=== PATIENT | female | born 1955 | race Caucasian/White ===

== ENCOUNTER → 2020-04-12 16:16 | Outpatient (CLI) | payer BC, SELFPAY ==
--- NOTE | ~2020-04-12 | MM_ITS ---
EXAMINATION: MM screening [facility] BI w jailene HISTORY: Screening TECHNIQUE: Craniocaudal and mediolateral oblique 3-D tomosynthesis images were obtained and synthetic 2-D images were generated. CAD analysis was submitted and interpreted. COMPARISON: Comparison to multiple prior studies sequentially, with oldest reviewed study dated 12/20. BREAST PARENCHYMAL COMPOSITION: There are scattered areas of fibroglandular density. FINDINGS: There is no evidence of suspicious mass, calcification, or architectural distortion to sugg est malignancy in either breast. There has been no suspicious interval change. IMPRESSION: 1. No mammographic evidence of malignancy. 2. Recommend routine screening mammography in one year. BI-RADS Category 1: Negative Reviewed, dictated and finalized at location A.
== END ==
PROVIDERS: PCP Family Medicine; Visit Provider Family Medicine
DX: Z12.31 Encounter for screening mammogram for malignant neoplasm of breast (principal)
CPT/HCPCS: 77063; 77067

== ENCOUNTER → 2021-05-21 16:18 | Outpatient (CLI) | payer BC, SELFPAY ==
--- NOTE | ~2021-05-21 | MM_ITS ---
EXAMINATION: MM screening [facility] BI w jailene HISTORY: Screening mammogram TECHNIQUE: Craniocaudal and mediolateral oblique 3-D tomosynthesis images were obtained and synthetic 2-D images were generated. CAD analysis was submitted and interpreted. COMPARISON: 04/12/2020, 02/16/2019 BREAST PARENCHYMAL COMPOSITION: There are scattered areas of fibroglandular density. FINDINGS: There is no evidence of suspicious mass, calcification, or architectural distortion to sugg est malignancy in either breast. There has been no suspicious interval change. IMPRESSION: 1. No mammographic evidence of malignancy. 2. Recommend routine screening mammography in one year. BI-RADS Category 1: Negative Reviewed, dictated and finalized at location A. ULATING MACHINE MECHANIC
== END ==
PROVIDERS: PCP Family Medicine; Visit Provider Family Medicine
DX: Z12.31 Encounter for screening mammogram for malignant neoplasm of breast (principal)
CPT/HCPCS: 77063; 77067

== ENCOUNTER 2021-07-01 01:38 | Day surgery (SDC) | payer BC, SELFPAY ==
[2021-06-18 11:26] VITALS: BMI 26.6
[2021-07-01 08:40] VITALS: BP 121/73; PULSE 76; RESP 16; TEMP 36.3; O2SAT 100; BMI 25.7
[2021-07-01] MEDS: LACTATED RINGERS 1,000 ML 150 ML IV CONT (08:52)
--- NOTE | 2021-07-01 09:04 | P.CONGI_ITS ---
Assessment and Plan Assessment and plan (1) Family hx of colon cancer: Code(s): Z80.0 - Family history of malignant neoplasm of digestive organs Status: Acute Assessment and Plan: Patient's brother has had colon cancer as well as a cousin. Patient herself has had colon polyps in the past. Plan is for surveillance colonoscopy now and at 5 year intervals in the future. GI Consult Note Consult date/time: 07/01/21 09:04 HPI: Jazmyn Davila is a 66 year old female Presents for screening colonoscopy. Patient reports that she has had prior colonoscopies typically at 5 year intervals. At 1 time she did have colon polyps. Family history is significant many years ago a cousin with colon cancer more recently her brother with colon cancer. Patient presents for neoplasia screening. Review of Systems Review of Systems: All systems reviewed & are unremarkable except as noted in HPI and below PMFSH Past Medical History Medical History Arthritis Asthma High cholesterol Pneumonia Family History Family History Other Cerebrovascular accident Diabetes mellitus Family history of arthritis Family history of cardiovascular disease Family history of malignant neoplasm Hypertension Social History Social History Smoking status: Never smoker Alcohol intake: former Substance use: never Substance use type: does not use Living arrangements: with family Spiritual care concerns: No Meds Home Medications and Allergies Home Medications Medication Instructions Recorded Confirmed Type Daily Fiber 2 tab-cap PO DAILY 06/18/21 06/18/21 History azelastine 2 spray INTRANASAL BID 06/18/21 06/18/21 History fluticasone propionate 2 spray INTRANASAL DAILY 06/18/21 06/18/21 History latanoprost 1 drp EACH EYE HS 06/18/21 06/18/21 History montelukast 10 mg PO DAILY 06/18/21 06/18/21 History ibhzkhfsqlhx-Pw-ripy-minerals 1 tablet PO DAILY 06/18/21 06/18/21 History [Multiple Vitamin, Womens] rosuvastatin 40 mg PO HS 06/18/21 06/18/21 History Allergies Allergy/AdvReac Type Severity Reaction Status Date / Time Molds and Smuts Allergy Unknown Unknown Uncoded 07/01/21 08:39 [place] Allergy Unknown Unknown Uncoded 07/01/21 08:39 Vital Signs Vital Signs - 24 hr 07/01/21 08:40 Temperature 97.3 F L Pulse Rate 76 Respiratory Rate 16 Blood Pressure 121/73 Pulse Oximetry 100 Exam Narrative: Physical exam reveals patient be alert. Vital signs stable. HEENT exam is unremarkable. Patient is anicteric. Lungs are clear to auscultation and percussion. Heart is without murmur or extra sounds. Abdominal exam bowel sounds are present soft nontender with no hepatosplenomegaly. Digital external rectal exam is normal.
--- NOTE | 2021-07-01 09:06 | WPDANESEPPF ---
Anes - Initial Pre Proc Eval Procedure: Operation Date: 07/01/21 10:00 Proposed Procedures p Screening Colonoscopy - Salvador Olivo MD Date/Time: 07/01/21 09:06 Surgeon: Salvador Olivo MD Pre Op Diagnosis: neoplasm screening Patient Data Age: 66 Gender: F Height: 1.57 m Weight: 63.7 kg Last Vital Signs Temp 36.3 C L 07/01/21 08:40 Pulse 76 07/01/21 08:40 Resp 16 07/01/21 08:40 BP 121/73 07/01/21 08:40 Pulse Ox 100 07/01/21 08:40 Allergies Allergy/AdvReac Type Severity Reaction Status Date / Time Molds and Smuts Allergy Unknown Unknown Uncoded 07/01/21 08:39 [place] Allergy Unknown Unknown Uncoded 07/01/21 08:39 Home Medications Medication Instructions Recorded Confirmed Type Daily Fiber 2 tab-cap PO DAILY 06/18/21 06/18/21 History azelastine 2 spray INTRANASAL BID 06/18/21 06/18/21 History fluticasone propionate 2 spray INTRANASAL DAILY 06/18/21 06/18/21 History latanoprost 1 drp EACH EYE HS 06/18/21 06/18/21 History montelukast 10 mg PO DAILY 06/18/21 06/18/21 History jepaliaeypct-Kc-ubzr-minerals 1 tablet PO DAILY 06/18/21 06/18/21 History [Multiple Vitamin, Womens] rosuvastatin 40 mg PO HS 06/18/21 06/18/21 History Patient hx anesthesia problems: post op nausea/vomiting Family hx anesthesia problems: none Results Review: All pre-operative results and documents have been reviewed as part of the pre-operative evaluation. [facility] Past Medical History Medical History Arthritis Asthma High cholesterol Pneumonia Family History Family History Other Cerebrovascular accident Diabetes mellitus Family history of arthritis Family history of cardiovascular disease Family history of malignant neoplasm Hypertension Social History Social History Smoking status: Never smoker Alcohol intake: former Substance use: never Substance use type: does not use Living arrangements: with family Spiritual care concerns: No Anes - Eval Final PreProcedure Day of Procedure 07/01/21 09:06 Patient weight: normal Heart: regular rate and rhythm Lungs: clear to auscultation Airway: Mallampati scale class II Neurological: alert and oriented Last oral intake: >/= 8 hours ASA classification: II Emergent: no Anesthetic plan: proceed Anesthesia type and monitoring: general GIVS and standard monitoring Results Review: All pre-operative results and documents have been reviewed as part of the pre-operative evaluation. Informed Consent: The patient's anesthetic plan and its attendant risks and benefits were discussed with the patient/family/POA. Questions were solicited and answers provided to the satisfaction of the patient/family/POA.
[2021-07-01 09:53] VITALS: BP 110/65; PULSE 82; RESP 22; O2SAT 93
[2021-07-01 10:03] VITALS: BP 117/63; PULSE 81; RESP 19; O2SAT 95
[2021-07-01 10:13] VITALS: BP 129/71; PULSE 70; RESP 20; O2SAT 98
== END 2021-07-01 10:27 | disposition home or self-care (01) ==
PROVIDERS: PCP Family Medicine; Visit Provider Internal Medicine Gastroenterology
PROC: 0DJD8ZZ Inspection of Lower Intestinal Tract, Via Natural or Artificial Opening Endoscopic (ICD-10-PCS; CPT 45378; principal; 2021-07-01 10:00)
DX: Z12.11 Encounter for screening for malignant neoplasm of colon (principal); D12.5 Benign neoplasm of sigmoid colon; K57.30 Diverticulosis of large intestine without perforation or abscess without bleeding; K64.8 Other hemorrhoids; Z80.0 Family history of malignant neoplasm of digestive organs; J45.909 Unspecified asthma, uncomplicated; E78.00 Pure hypercholesterolemia, unspecified
CPT/HCPCS: 45385; 88305; J2704; J7120

== ENCOUNTER → 2022-08-12 14:55 | Outpatient (CLI) | payer MEDICARE, SELFPAY ==
--- NOTE | ~2022-08-12 | MM_ITS ---
EXAMINATION: MM screening [facility] BI w jailene HISTORY: Screening mammogram TECHNIQUE: Craniocaudal and mediolateral oblique 3-D tomosynthesis images were obtained and synthetic 2-D images were generated. CAD analysis was submitted and interpreted. COMPARISON: 05/21/2021, 04/12/2020, 02/16/2019, 01/22/2018 BREAST PARENCHYMAL COMPOSITION: There are scattered areas of fibroglandular density. FINDINGS: There is a small cluster of circumscribed subcentimeter low density nodules in the central, upper left breast, which are growing slowly more conspicuous since 2019. No suspicious parenchymal a bnormality seen in the right breast. No suspicious macrocalcifications in either breast. IMPRESSION: More conspicuous cluster of circumscribed subcentimeter low density nodules in the central to upper l eft breast, as detailed above. Spot compression views and ultrasound are recommended for further eval uation. BI-RADS Category 0: Incomplete: Needs additional imaging evaluation. Reviewed, dictated and finalized at location . ECT ENGINEERING DIRECTOR IMPRESSION: More conspicuous cluster of circumscribed subcentimeter low density nodules in the central to upper left breast, as detailed above. Spot compression views and ultrasound are recommended for further evaluation. BI-RADS Category 0: Incomplete: Needs additional imaging evaluation.
== END ==
PROVIDERS: PCP Family Medicine; Visit Provider Family Medicine
DX: Z12.31 Encounter for screening mammogram for malignant neoplasm of breast (principal); R92.8 Other abnormal and inconclusive findings on diagnostic imaging of breast
CPT/HCPCS: 77063; 77067

== ENCOUNTER → 2022-10-03 08:04 | Outpatient (CLI) | payer MEDICARE, SELFPAY ==
--- NOTE | ~2022-10-03 | MMUS_ITS ---
EXAMINATION: MM diagnostic cali LT w jailene, US breast LT complete HISTORY: Follow-up small left breast masses. TECHNIQUE: Additional 3-D tomosynthesis images of the left breast were performed and synthetic 2-D im ages were generated. CAD analysis was submitted and interpreted. High resolution complete left breast ultrasound was performed. COMPARISON: Comparison to multiple prior studies sequentially, with oldest reviewed study dated 01/14 BREAST PARENCHYMAL COMPOSITION: Breast composed of scattered areas of fibroglandular density FINDINGS: MAMMOGRAPHIC FINDINGS: There are 2 small masses in the upper outer quadrant of the left breast. ULTRASOUND: Complete US of all 4 quadrants of the left breast and retroareolar region was reviewed. At 1:00, 7 cm from the nipple there is an oval hypoechoic 4 mm mass with parallel orientation, no posterior featur es or internal vascularity. At 2:00, 1 cm from the nipple, there is a 4 mm simple cyst. IMPRESSION: 1. Probable benign left breast mass at 1:00, 7 cm from the nipple. 2. Recommend 6 month follow-up Limited left breast ultrasound BI-RADS category 3, probably benign findings. Reviewed, dictated and finalized at location A. IMPRESSION: 1. Probable benign left breast mass at 1:00, 7 cm from the nipple. 2. Recommend 6 month follow-up Limited left breast ultrasound BI-RADS category 3, probably benign findings.
== END ==
PROVIDERS: PCP Physician Assistant; Visit Provider Emergency Medicine
DX: R92.8 Other abnormal and inconclusive findings on diagnostic imaging of breast (principal)
CPT/HCPCS: 76641; 77061; 77065; G0279

== ENCOUNTER → 2022-11-11 10:50 | Outpatient (CLI) | payer MEDICARE, SELFPAY ==
--- NOTE | ~2022-11-11 | DEXA_ITS ---
Bone Density Report Name: SAMMY PIRES Age: 67 Sex: Female Ethnicity: White Date of : 1955 Indication: postmenopausal; screening for osteoporosis; height loss; Referring Provider: TONYA, MARY Study: Bone densitometry was performed. Exam Date: November 11, 2022 Accession number: [id number] Bone Density: Region BMD T-score Z-score Classification AP Spine (L1-L4) 1.142 0.9 2.7 Normal Femoral Neck (Left) 0.900 0.5 2.0 Normal Total Hip (Left) 0.991 0.4 1.7 Normal World Health Organization criteria for BMD impression classify patients as: Normal (T-score at or above -1.0), Osteopenia (T-score between -1.0 and -2.5), or Osteoporosis (T-score at or below -2.5). 10-year Fracture Risk: FRAX not reported because: All T-scores for Spine Total, Hip Total, Femoral Neck at or above -1.0 Clinical Information Provided by Patient: Patient maximum height was 63.1 Menopause Age: 47 Drinks caffeinated beverages Onset of menses at age 16 Number of children 1 Impression: The patient has normal bone mass. Discussion: BONE DENSITY IS ABOVE THE MINIMUM DESIRABLE LEVEL AT ALL SKELETAL SITES TESTED. This patient?s bone mineral density is above the minimum desirable level (T-score -1.0 or better) at all sites measured. The patient should follow a healthful lifestyle (good nutrition with adequate calcium and vitamin D, and appropriate weight-bearing exercise). Follow-Up: Consider repeating this study in 5 years or sooner if there is some new clinical indication. Reported by: YOHANA on 11/11/2022 11:07:00 AM. Reviewed, dictated and finalized at location Merry BRANNON
== END ==
PROVIDERS: PCP Physician Assistant; Visit Provider Physician Assistant
DX: Z13.820 Encounter for screening for osteoporosis (principal); Z78.0 Asymptomatic menopausal state
CPT/HCPCS: 77080

== ENCOUNTER → 2023-04-24 13:59 | Outpatient (CLI) | payer MEDICARE, SELFPAY ==
--- NOTE | ~2023-04-24 | US_ITS ---
US breast LT limited INDICATION: Follow-up left breast mass TECHNIQUE: Dedicated Limited left breast ultrasound COMPARISON: 10/03/2022 FINDINGS: The left breast is composed of normal heterogeneous echotexture without focal solid or cyst ic mass. IMPRESSION: 1: Normal left breast ultrasound. BI-RADS CATEGORY 1 - NEGATIVE Reviewed, dictated and finalized at location A.
== END ==
PROVIDERS: PCP Physician Assistant; Visit Provider Physician Assistant
DX: R92.8 Other abnormal and inconclusive findings on diagnostic imaging of breast (principal)
CPT/HCPCS: 76642

== ENCOUNTER 2024-05-19 11:24 | Outpatient (CLI) | payer MEDICARE, SELFPAY ==
--- NOTE | ~2024-05-19 | MM_ITS ---
EXAMINATION: MM screening [facility] BI w jailene HISTORY: Screening mammogram TECHNIQUE: Craniocaudal and mediolateral oblique 3-D tomosynthesis images were obtained and synthetic 2-D images were generated. CAD analysis was submitted and interpreted. COMPARISON: 08/12/2022, 05/21/2021, 04/12/2020 BREAST PARENCHYMAL COMPOSITION:Not Dense. There are scattered areas of fibroglandular density. FINDINGS: No suspicious mass, calcification, or architectural distortion are identified in either yanely ast to suggest malignancy. There has been no suspicious interval change. IMPRESSION: No mammographic evidence of malignancy. Recommend routine screening mammography in one year. BI-RADS Category 1: Negative Reviewed, dictated and finalized at location . R INTELLIGENCE ANALYST
== END 2024-05-19 11:25 | disposition home or self-care (01) ==
LOC: MICIMG 11:26
PROVIDERS: PCP Physician Assistant; Visit Provider Physician Assistant
DX: Z12.31 Encounter for screening mammogram for malignant neoplasm of breast (principal)
CPT/HCPCS: 77063; 77067

== ENCOUNTER 2025-05-25 12:44 | Outpatient (CLI) | payer MEDICARE, SELFPAY ==
--- NOTE | ~2025-05-25 | MM_ITS ---
EXAMINATION: MM screening [facility] BI w [facility] HISTORY: Screening TECHNIQUE: Craniocaudal and mediolateral oblique 3-D tomosynthesis images were obtained and synthetic 2-D images were generated. CAD analysis was submitted and interpreted. COMPARISON: Comparison to multiple prior studies sequentially, with oldest reviewed study dated 02/16/2019. BREAST PARENCHYMAL COMPOSITION: Not Dense: There are scattered areas of fibroglandular density. FINDINGS: There is no evidence of suspicious mass, calcification, or architectural distortion to suggest malignancy in either breast. Scattered benign-appearing calcifications are present. IMPRESSION: 1. No mammographic evidence of malignancy. 2. Recommend routine screening mammography in one year. BI-RADS Category 2: Benign finding(s). Reviewed, dictated and finalized at location B. [employer]
--- OUTSIDE RECORDS SUMMARY | 2025-05-25 15:16 | XMS_ITS | Encounter Summary ---
Author Organization [facility] Address [address] [place] [address] Care Team Providers Care Quilt Maker Name Role Phone Vanessa Molina MD Primary Care Provider [phone] Lisa Huber PA-C Primary Care Provider [phone] Encounter Details Date Type Department Care Team (Late Contact Info) Description 07/18/2020 Abstract [facility], [address] [address] Claudine Ernst MA Social History Tobacco Use Types Packs/Day Years Used Date Smoking Tobacco: Never Smokeless Tobacco: Never Alcohol Use Standard Drinks/Week Comments Not Currently 0 (1 standard drink = 0.6 oz pur e alcohol) Comments Unknown Sex and Gender Information Value Date Recorded Sex Assigned at Not on file Legal Sex Female 6:39 PM CDT Gender Identity Not on file Sexual Orientation Not on file 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 No / Unsure 07/17/2020 2:55 PM AIRLINE CUSTOMER SERVICE AGENT documented as of this encounter Plan of Treatment Upcoming Encounters Date Type Department Care Team (Late Contact Info) Description 10/20/2025 10:00 AM CDT Office Visit [facility] [phone] Arnaud Burroughs MD [address] [place] [address] [address] [place] [phone] documented as of this encounter Procedures Procedure Name Priority Date/Time Associated Diagnosis Comments HEMOGLOBIN, GLYCOSYLATED Routine 10/21/2023 COMPREHENSIVE METABOLIC PANEL Routine 10/21/2023 LIPID PANEL Routine 10/21/2023 CBC, MANUAL DIFF Routine 10/21/2023 THYROXINE, FREE (FT4) Routine 10/21/2023 THYROID STIM HORMONE TSH Routine 10/21/2023 AST/SGOT Routine 08/12/2022 BASIC METABOLIC PANEL Routine 08/12/2022 LIPID PANEL Routine 08/12/2022 HEMOGLOBIN, GLYCOSYLATED Routine 08/12/2022 AST/SGOT Routine 06/25/2021 BASIC METABOLIC PANEL Routine 06/25/2021 LIPID PANEL Routine 06/25/2021 LIPID PANEL Routine 08/22/2020 AST/SGOT Routine 06/26/2020 BASIC METABOLIC PANEL Routine 06/26/2020 LIPID PANEL Routine 06/26/2020 HEMOGLOBIN, GLYCOSYLATED Routine 06/26/2020 documented in this encounter Results * COMPREHENSIVE METABOLIC PANEL (10/21/2023) SODIUM S/P/B 144 GLUCOSE 106 mg/dL AST 17 BUN 10 CREATININE S/P/B 0.60 0.5 - 1.0 CALCIUM S/P/B 9.4 POTASSIUM S/P/B 4.4 CHLORIDE S/P/B 107 ALT 25 GFR ESTIMATE 99 Result [facility] Default History Genericprovider LABORATORY Edited Result - Final * LIPID PANEL (10/21/2023) Pathologist [facility] CHOLESTEROL 159 TRIGLYCERIDES 162 HDL 51 LDL (CALCULATED) 80 Result [facility] Genericprovider LABORATORY Edited Result - Final * CBC, MANUAL DIFF (10/21/2023) Pathologist [facility] WBC 5.2 HGB 13.3 HCT 41.5 PLT 202 Result [facility] Genericprovider LABORATORY Edited Result - Final * THYROXINE, FREE (FT4) (10/21/2023) [facility] FREE T4 1.40 Result [facility] Genericprovider LABORATORY Edited Result - Final * HEMOGLOBIN, GLYCOSYLATED (10/21/2023) [facility] HGB A1C 6.2 % Result [facility] Genericprovider LABORATORY Edited Result - Final * THYROID STIM HORMONE, TSH (10/21/2023) [facility] TSH 1.800 Result [facility] Genericprovider LABORATORY Edited Result - Final * AST/SGOT (08/12/2022) Pathologist [facility] AST 14 08/12/2022 Result [facility] Genericprovider LABORATORY Final Result * HEMOGLOBIN, GLYCOSYLATED (08/12/2022) [facility] HGB A1C 6.2 % 08/12/2022 Result [facility] Genericprovider LABORATORY Edited Result - Final * (ABNORMAL) BASIC METABOLIC PANEL (08/12/2022) SODIUM S/P/B 139 POTASSIUM S/P/B 4.5 CO2 20 CHLORIDE S/P/B 105 GLUCOSE 103 mg/dL CALCIUM S/P/B 9.4 BUN 11 CREATININE S/P/B 0.60 0.5 - 1.0 EGFR NON-AFR. AMER. 100(A) <=90 08/12/2022 Default History Genericprovider LABORATORY Edited Result - Final * LIPID PANEL (08/12/2022) Pathologist [facility] CHOLESTEROL 143 HDL 50 TRIGLYCERIDES 148 NON HDL CHOLESTEROL 93 LDL (CALCULATED) 70 08/12/2022 Default History Genericprovider LABORATORY Final Result * AST/SGOT (06/25/2021) Pathologist [facility] AST 18 06/25/2021 us [facility] Abstract LABORATORY Final Result * (ABNORMAL) BASIC METABOLIC PANEL (06/25/2021) Pathologist [facility] SODIUM S/P/B 138 POTASSIUM S/P/B 4.7 CO2 29 CHLORIDE S/P/B 105 GLUCOSE 111 mg/dL CALCIUM S/P/B 9.8 BUN 10 CREATININE S/P/B 0.67 0.5 - 1.0 EGFR AFR. AMER. 108(A) <=90 EGFR NON-AFR. AMER. 93(A) <=90 06/25/2021 us Doc [facility] Abstract LABORATORY Final Result * LIPID PANEL (06/25/2021) Pathologist [facility] CHOLESTEROL 155 HDL 60 TRIGLYCERIDES 110 NON HDL CHOLESTEROL 95 LDL (CALCULATED) 75 06/25/2021 us Doc [facility] LABORATORY Final Result * LIPID PANEL (08/22/2020) CHOLESTEROL 179 HDL 52 TRIGLYCERIDES 153 NON HDL CHOLESTEROL 127 LDL (CALCULATED) 102 08/22/2020 us Doc [facility] LABORATORY Final Result * HEMOGLOBIN, GLYCOSYLATED (06/26/2020) HGB A1C 5.7 % 06/26/2020 us Doc [facility] LABORATORY Final Result * LIPID PANEL (06/26/2020) CHOLESTEROL 243 HDL 50 TRIGLYCERIDES 217 NON HDL CHOLESTEROL 193 LDL (CALCULATED) 154 06/26/2020 us Doc [facility] LABORATORY Final Result * AST/SGOT (06/26/2020) AST 18 06/26/2020 us Doc [facility] LABORATORY Final Result * (ABNORMAL) BASIC METABOLIC PANEL (06/26/2020) SODIUM S/P/B 137 POTASSIUM S/P/B 4.5 CO2 28 CHLORIDE S/P/B 105 GLUCOSE 105 mg/dL CALCIUM S/P/B 9.5 BUN 18 CREATININE S/P/B 0.71 0.5 - 1.0 EGFR AFR. AMER. 105(A) <=90 EGFR NON-AFR. AMER. 91(A) <=90 06/26/2020 us Doc [facility] LABORATORY Final Result documented in this encounter Visit Diagnoses Not on filedocumented in this encounter Care Teams Quilt Maker Relationship Specialty Start Date End Date Vanessa Molina MD PCP - General FAMILY PRACTICE 07/09/20 10/09/22 BarbLisa kim PA-C PCP - General PHYSICIAN [employer] LIGHT 10/10/22 documented as of this encounter
--- OUTSIDE RECORDS SUMMARY | 2025-05-25 15:16 | XMS_ITS | Patient Health Record ---
Author Organization [facility] Address [address] [place], [place] [id number] Care Team Providers Care Preschool Adviser Name Role Phone [facility] Unavailable [phone] Vanessa Molina Unavailable Unavailable Reason For Referral No Information Medications Medication SIG (Take, Route, Frequency, Duration) Notes Start Date End Date Status Medrol Dosepak ORAL Medrol DosepakOr iginal MedicationMedrol Dosepak *Reorder from [employer] for eRx and Interaction Alerts* 08/09/2013 Active ciclopirox 80 MG/ML Topical Solution CUTANEOUS ciclopirox 80 MG/ML Topical SolutionOriginal Medicationciclopirox 80 MG/ML Topical Solution *Reorder from [employer] for eRx and Interaction Alerts* 07/29/2013 Active Social History Social History Additional Details Category Social Info Options Details Migrated Social History Migrated Social History History of tobacco use : , Smoking Status : Never used tobacco Plan Of Treatment No Information Insurance Providers Payer Name Payer Address Payer Phone Subscriber Number Group Number Insured Name Patient Relationship to Insured Coverage Start Date Coverage End Date [facility] ([facility] ATTN CLAIMS [address] [place] [address] [id number] SAMMY GUZMÁN Self - patient is the insured
--- OUTSIDE RECORDS SUMMARY | 2025-05-25 15:16 | XMS_ITS | Clinical Summary ---
Author Organization [facility] Address [address] [place] [address] Care Team Providers Care Senior Net Software Engineer Name Role Phone Lisa Huber PA-C Primary Care Provider [phone] Allergies Active Allergy Reactions Criticality Noted Date Comments Atorvastatin Myalgias Medium 08/11/2012 Medications montelukast 10 MG tablet Take 10 mg by mouth nightly at bedtime. 020 Active latanoprost 0.005 % ophthalmic solution Place 1 drop into both eyes nightly at bedtime. 021 Active fluticasone propionate 50 MCG/ACT nasal spray 2 sprays by Each Nostril route daily. 021 Active loratadine 10 MG tablet Take 10 mg by mouth daily. Active Methylcellulose, Laxative, (CITRUCEL OR) Take by mouth daily. Active Multiple Vitamin (MULTIVITAMIN OR) Take 1 tablet by mouth daily. Active amoxicillin (AMOXIL) 500 MG capsule TAKE 4 CAPSULES BY MOUTH 1 HOUR PRIOR TO APPOINTMENT TIME 023 Active rosuvastatin (CRESTOR) 40 MG tabletIndications:Pure hypercholesterolemia Take 1 tablet (40 mg total) by mouth nightly at bedtime. 30 tablet 025 Active Turmeric Curcumin 500 MG Cap Take 2 chewable tablet by mouth daily. Active Active Problems Problem Noted Date Diagnosed Date Pure hypercholesterolemia 10/03/2021 Other chest pain 10/03/2021 Family history of heart disease 10/03/2021 Acute maxillary sinusitis 11/22/2014 Overview (10/16/2023): Location: None;Severity: Moderate;Progress: Stable;Added By: Vanessa Molina;Add to Current Problems: NO Hyperlipidemia 08/08/2012 Immunizations Immunization Administration Dates Next Due Flucelvax 6 Months+ (Prefill ed Syringe) 04/12/2017 Fluzone 6 Months+ Quad (0.5 mL Prefilled Syringe) 04/03/2020 Influenza (Generic) 04/12/2015, 4,05/03/2013,2010 Influenza Adult (Generic) 04/23/2021,,04/12/2018,2016 PFIZER COVID-19 (ORIGINAL FORMULATION, PURPLE CAP) mRNA, LNP-S, PF, 30 MCG/0.3 ML DOSE 04/16/2021,09/14/2020,08/23/2020 Tdap (Generic) 02/05/2010 Zoster (Zostavax) 24114 Unt/0.65Ml 04/13/2017, Family History Medical History Relation Comments Heart Disease Father Hypertension Father Heart Attack Maternal Grandfather Stroke Maternal Grandmother Lipids Mother Parkinson's Disease Mother Stroke Mother Heart Attack Paternal Grandfather Heart Attack Paternal Grandmother Relation Status Comments Brother (Age 63) Father (Age 75) Maternal Grandfather (Age 76) Maternal Grandmother (Age 79) Mother (Age 72) Paternal Grandfather (Age 89) Paternal Grandmother (Age 92) Social History Tobacco Use Types Packs/Day Years Used Date Smoking Tobacco: Never Smokeless Tobacco: Never Tobacco Cessation:Counseling Given: Not Answered Alcohol Use Standard Drinks/Week Comments Not Currently 0 (1 standard drink = 0.6 oz pur e alcohol) Comments Unknown Sex and Gender Information Value Date Recorded Sex Assigned at Not on file Legal Sex Female 6:39 PM CDT Gender Identity Not on file Sexual Orientation Not on file 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 Not on file Not on file Not on file Last Filed Vital Signs Vital Sign Reading Time Taken Comments Blood Pressure 112/64 10/21/2024 9:43 AM CDT Pulse 97 10/21/2024 9:43 AM CDT Temperature - - Respiratory Rate - - Oxygen Saturation 96% 10/21/2024 9:43 AM CDT Inhaled Oxygen Concentration - - Weight 70.8 kg (156 lb) 10/21/2024 9:43 AM CDT Height 157.5 cm (5' 2) 10/21/2024 9:43 AM CDT Body Mass Index 28.53 10/21/2024 9:43 AM CDT Plan of Treatment Upcoming Encounters Date Type Department Care Team (Late st Contact Info) Description 10/20/2025 10:00 AM CDT Office Visit [facility] [phone] Arnaud Burroughs MD [address] [facility] [address] [place] [phone] Health Maintenance Due Date Last Done Comments Colorectal Cancer Screening Colonoscopy (10 Years) 1957 Hepatitis C 1975 Mammogram Screening 1997 Zoster Vaccines (2 of 3) 06/08/2017 04/13/2017, 02/2017 AAA SCREENING 2022 Annual Medicare Wellness Visit 2022 Dexa Scan (General) 2022 COVID-19 Vaccine ( season) 2025 04/01/2022, 04/16/2021, 09/14/2020, Additional history exists Influenza Adult (#1) 2025 02/22/2022, 04/23/2021, 04/03/2020, Additional history exists RSV Immunization or 60+ Years (1 - 1-dose 75+ series) 2032 DTaP, Tdap and Td Vaccines (3 - Td or Tdap) 05/15/2032 05/15/2022, 02/05/2010 Pneumococcal Vaccine: 50+ Years Completed 04/09/2022 Hepatitis A Vaccines Aged Out No long er eligible based on patient's age to complete this topic Meningococcal B Vaccine Aged Out No l onger eligible based on patient's age to complete this topic Meningococcal Vaccine Aged Out No torsten yves eligible based on patient's age to complete this topic RSV Immunizations Under 20 Months Aged Out No longer eligible based on patient's age to complete this topic Insurance MEDICARE [facility] [employer] Care Teams Senior Net Software Engineer Relationship Specialty Start Date End Date Lisa Huber PA-C PCP - General PHYSICIAN MENTALLY IMPAIRED TEACHER 10/10/22
== END 2025-05-25 12:45 | disposition home or self-care (01) ==
LOC: CHSIMG 12:49
PROVIDERS: PCP Physician Assistant; Visit Provider Physician Assistant
DX: Z12.31 Encounter for screening mammogram for malignant neoplasm of breast (principal)
CPT/HCPCS: 77063; 77067